=== PATIENT | male | born 1975 | race Two or more races ===

== ENCOUNTER 2019-01-21 05:10 | Emergency (ER) | payer BC ==
[2019-01-21] MEDS ORDERED: ASPIRIN 81 MG TABLET, CHEWABLE PO ONE (05:33)
[2019-01-21 05:58] LABS: ABSOLUTE BASOPHILS # (AUTO) 0.1 10^3/uL (0.0-0.2); ABSOLUTE EOSINOPHILS # (AUTO) 0.2 10^3/uL (0.0-0.6); ABSOLUTE LYMPHOCYTES (AUTO) 2.6 10^3/uL (0.5-4.7); ABSOLUTE MONOCYTES (AUTO) 1.3 10^3/uL (0.1-1.4); ABSOLUTE NEUT (AUTO) 8.6 10^3/uL (1.7-8.2); BASOPHILS % (AUTO) 0.4 % (0-2); EOSINOPHILS % (AUTO) 1.2 % (0-6); HEMATOCRIT 51.7 % (37.9-51.0); HEMOGLOBIN 17.3 g/dL (13.5-17.0); LYMPHOCYTES % (AUTO) 20.2 % (13-45); MEAN CORPUSCULAR HEMOGLOBIN 31.6 pg (27.0-33.4); MEAN CORPUSCULAR HGB CONC 33.5 g/dL (32.0-36.0); MEAN CORPUSCULAR VOLUME 94 fl (80-97); MONOCYTES % (AUTO) 10.6 % (3-13); PLATELET COUNT 313 10^3/uL (150-450); RED BLOOD COUNT 5.49 10^6/uL (4.35-5.55); RED CELL DISTRIBUTION WIDTH 12.7 % (11.5-14.0); SEGMENTED NEUTROPHILS % (AUTO) 67.6 % (42-78); TOTAL CELLS COUNTED % (AUTO) 100 %; WHITE BLOOD COUNT 12.7 10^3/uL (4.0-10.5)
[2019-01-21 06:08] LABS: ALBUMIN 4.6 g/dL (3.5-5.0); ALKALINE PHOSPHATASE 64 U/L (38-126); ANION GAP 10 (5-19); ASPARTATE AMINO TRANSFERASE 32 U/L (17-59); BILIRUBIN,DIRECT 0.2 mg/dL (0.0-0.4); BILIRUBIN,TOTAL 0.9 mg/dL (0.2-1.3); BLOOD UREA NITROGEN 12 mg/dL (7-20); CALCIUM 9.7 mg/dL (8.4-10.2); CARBON DIOXIDE 28 mmol/L (22-30); CHLORIDE 104 mmol/L (98-107); CREATINE KINASE 236 U/L (55-170); GLUCOSE 127 mg/dL (75-110); POTASSIUM 4.3 mmol/L (3.6-5.0); TOTAL PROTEIN 7.9 g/dL (6.3-8.2)
[2019-01-21 06:20] LABS: CREATINE KINASE MB 1.31 ng/mL (<4.55); TROPONIN I < 0.012 ng/mL
[2019-01-21] MEDS ORDERED: KETOROLAC TROMETHAMINE 60 MG/2 ML SDV IM ONE (06:22)
[2019-01-21] MEDS ORDERED: BACLOFEN 20 MG TABLET PO ONE (06:22)
--- NOTE | 2019-01-21 06:27 | ER Document Report ---
ED General - General Chief Complaint: Chest Pain Stated Complaint: CHEST PAIN Time Seen by Provider: 01/21/19 06:15 Primary Care Provider: SUZIE YANEZ NP [Primary Care Provider] - Follow up as needed Mode of Arrival: Ambulatory Information source: Patient Notes: Chief complaint: Right chest wall pain History of complain:( obtained from----patient) 43 years old male nearly 2 days ago while sitting and watching television, had a couple of cough, following that developed sharp pain over the right mid axillary line. Since then the pain is increased in intensity on laying down and twisting the body towards the left side. Sitting up relieves the pain. Denies any difficulty in breathing. Denies any productive cough. Denies any fever chills or other constitutional symptoms. Onset: As about 2 days ago sudden Duration: 2 days Severity: Moderate to severe at times Quality: Sharp Context: As described above Exacerbating factor and relieving factors: As described above REVIEW OF SYSTEMS: CONSTITUTIONAL : Denies fever, chills, or sweats. Denies recent illness. EENT: Denies eye, ear, throat, or mouth pain or symptoms. Denies nasal or sinus congestion or discharge. Denies throat, tongue, or mouth swelling or difficulty swallowing. CARDIOVASCULAR: Denies chest pain. Denies palpitations or racing or irregular heart beat. Denies ankle edema. RESPIRATORY: Denies cough, cold, or chest congestion. Denies shortness of breath, difficulty breathing, or wheezing. GASTROINTESTINAL: Denies distention. Denies nausea, vomiting, or diarrhea. Denies blood in vomitus, stools, or per rectum. Denies black, tarry stools. Denies constipation. GENITOURINARY: Denies difficulty urinating, painful urination, burning, frequency, blood in urine, or discharge. FEMALE GENITOURINARY: Denies vaginal bleeding, heavy or abnormal periods, irregular periods. Denies vaginal discharge or odor. MUSCULOSKELETAL: Denies back or neck pain or stiffness. Denies joint pain or swelling. SKIN: Denies rash, lesions or sores. HEMATOLOGIC : Denies easy bruising or bleeding. LYMPHATIC: Denies swollen, enlarged glands. NEUROLOGICAL: Denies confusion or altered mental status. Denies passing out or loss of consciousness. Denies dizziness or lightheadedness. Denies headache. Denies weakness or paralysis or loss of use of either side. Denies problems with gait or speech. Denies sensory loss, numbness, or tingling. Denies seizures. PSYCHIATRIC: Denies anxiety or stress. Denies depression, suicidal ideation, or homicidal ideation. ALL OTHER SYSTEMS REVIEWED AND NEGATIVE. PHYSICAL EXAMINATION: GENERAL: Well-appearing, well-nourished and in mild to moderate acute distress. Obese HEAD: Atraumatic, normocephalic. EYES: Pupils equal round and reactive to light, extraocular movements intact, conjunctiva are normal. ENT: Nares patent, oropharynx clear without exudates. Moist mucous membranes. NECK: Normal range of motion, supple without lymphadenopathy LUNGS: Breath sounds clear to auscultation bilaterally and equal. No wheezes rales or rhonchi. Chest wall-sharp tenderness over the intercostal muscles noted over the right eighth ninth rib at the mid to anterior axillary line. HEART: Regular rate and rhythm without murmurs ABDOMEN: Soft, nontender, nondistended abdomen. No guarding, no rebound. No masses appreciated. Examination of genitals-deferred Musculoskeletal: Normal range of motion, no pitting or edema. No cyanosis. NEUROLOGICAL: Cranial nerves grossly intact. Normal speech, normal gait. Normal sensory, motor exams PSYCH: Normal mood, normal affect. SKIN: Warm, Dry, normal turgor, no rashes or lesions noted. Dictation was performed using [employer] voice recognition software TRAVEL OUTSIDE OF THE [place] IN LAST 30 DAYS: No - HPI Notes: Dictated - Related Data Allergies/Adverse Reactions: No Known Allergies Allergy (Verified 07/13/12 16:49) Past Medical History - Social History Smoking Status: Current Every Day Smoker Cigarette use (# per day): Yes - 1 p Chew tobacco use (# tins/day): No Smoking Education Provided: No Frequency of alcohol use: Heavy Lives with: Family Family History: Reviewed & Not Pertinent Patient has suicidal ideation: No Patient has homicidal ideation: No - Immunizations Hx Diphtheria, Pertussis, Tetanus Vaccination: Yes Review of Systems - Review of Systems Notes: Dictated Physical Exam - Vital signs Vitals: Temp Pulse Resp BP Pulse Ox 98.4 F 102 H 19 197/110 H 98 01/21/19 05:16 01/21/19 05:16 01/21/19 05:16 01/21/19 05:16 01/21/19 05:16 - Notes Notes: Dictated Course - Vital Signs Vital signs: Temp Pulse Resp BP Pulse Ox 98.4 F 102 H 19 197/110 H 98 01/21/19 05:16 01/21/19 05:16 01/21/19 05:16 01/21/19 05:16 01/21/19 05:16 - Laboratory Result Diagrams: 01/21/19 05:40 01/21/19 05:40 Laboratory results interpreted by me: 01/21/19 01/21/19 05:40 05:40 WBC 12.7 H Hgb 17.3 H Hct 51.7 H Absolute Neuts (auto) 8.6 H Glucose 127 H Creatine Kinase 236 H - Diagnostic Test Radiology reviewed: Reports reviewed - No rib fractures - EKG Interpretation by Me EKG shows normal: Sinus rhythm - Sinus rhythm at rate of 90 bpm, normal axis, no acute ST elevation ST depression T wave inversion noted. Normal EKG Discharge - Discharge Clinical Impression: Right-sided chest wall pain Condition: Fair Disposition: HOME, SELF-CARE Instructions: Chest Wall Pain ([facility]) Prescriptions: Ketorolac Tromethamine [Toradol 10 mg Tablet] 10 mg PO Q8HP PRN #14 tablet PRN Reason: Baclofen [Baclofen 20 Mg Tablet] 20 mg PO TID #30 tablet Referrals: SUZIE YANEZ NP [Primary Care Provider] - Follow up as needed
--- NOTE | 2019-01-21 08:02 | RADIOLOGY REPORT (SQ) ---
EXAM: X-ray RIBS unilateral with chest CLINICAL INDICATION: 43-year-old male with right chest wall pain TECHNICAL DATA: Two x-ray views of the right sided ribs were performed as well as a PA chest on 01/21/2019 at 6:52 AM. COMPARISONS: None FINDINGS: Two views of the right-sided ribs were performed and reveal no evidence of fracture or other acute osseous injury. No focal lytic or sclerotic bone lesions are identified. No definite pneumothorax is seen. No definite soft tissue abnormalities are identified. The lungs are well expanded. There is a linear opacity in the right inferior lateral hemithorax likely due to scarring and/or atelectasis. The lateral costophrenic sulci are clear. The cardiac silhouette is normal in size. The mediastinal contours are normal. There is no evidence of a pneumothorax. IMPRESSION: No evidence of acute rib injury. No evidence of acute intrathoracic disease. There is scarring or atelectasis in the right inferior lateral hemithorax.
[2019-01-21 08:14] VITALS: BP 160/89
--- NOTE | 2019-01-21 22:32 | EKG REPORT ---
SEVERITY:- BORDERLINE ECG - SINUS RHYTHM BORDERLINE INFERIOR Q WAVES : Confirmed by: José Mohr 21-Jan-2019 22:31:29
== END 2019-01-21 08:14 | disposition home or self-care (01) ==
LOC: ER 05:10
DX: R07.89 Other chest pain (principal); R05 Cough; F17.210 Nicotine dependence, cigarettes, uncomplicated
CPT/HCPCS: 93005; 99285; 96374; 36415; 82553; 82550; 85025; 80053; 84484; 71101; 93010; J1885; J3490

== ENCOUNTER → 2019-02-19 | Outpatient (CLI) | payer BC ==
--- NOTE | 2019-02-19 11:48 | RADIOLOGY REPORT (SQ) ---
EXAM DESCRIPTION: U/S ABDOMEN COMPLETE W/O DOP COMPLETED DATE/TIME: 02/19/2019 8:30 am REASON FOR STUDY: RENAL CYST (N28.1) N28.1 CYST OF KIDNEY, ACQUIRED COMPARISON: None. TECHNIQUE: Dynamic and static grayscale images acquired of the abdomen and recorded on PACS. Additio nal selected color Doppler and spectral images recorded. Note: Study does not meet criteria for complete doppler/duplex scan LIMITATIONS: None. FINDINGS: PANCREAS: The head of the pancreas is of normal echotexture. The body and tail are obscu red by overlying bowel gas. LIVER: The liver measures 17.7 cm, mild hepatomegaly. Fatty liver. Areas of focal fatty sparing are identified. LIVER VASCULATURE: Normal directional flow of the main portal vein and hepatic veins. GALLBLADDER: No stones. The gallbladder wall measures 1.9 mm, normal wall thickness. No pericholecys tic fluid. ULTRASOUND-DETECTED RAIN'S SIGN: Negative. INTRAHEPATIC DUCTS AND COMMON DUCT: CBD measures 4.0 mm in diameter, normal. The intrahepatic ducts normal caliber. No filling defects. INFERIOR VENA CAVA: Normal flow. AORTA: No aneurysm. RIGHT KIDNEY: The right kidney measures 12.1 cm in length, normal size. Normal echogenicity. No solid or suspicious masses. No hydronephrosis. No calcifications. LEFT KIDNEY: Left kidney measures 11.2 cm in length, normal size. Normal echogenicity. No solid or suspicious masses. No hydronephrosis. No calcifications. SPLEEN: Spleen measures 12.6 cm in length, normal size. No solid masses. PERITONEAL AND PLEURAL SPACES: No ascites or effusions. OTHER: No other significant finding. IMPRESSION: 1. The pancreas is suboptimally visualized due to overlying bowel gas. 2. Fatty liver. Mild hepatomegaly. TECHNICAL DOCUMENTATION: JOB ID: [id number] [employer]- All Rights Reserved Reading location - IP/workstation name: [email or web address]
--- NOTE | 2019-02-20 08:00 | RADIOLOGY REPORT (SQ) ---
EXAM DESCRIPTION: DUPLEX ART/YANELY FLOW COMPLETE COMPLETED DATE/TIME: 02/19/2019 8:30 am REASON FOR STUDY: RENAL CYST (N28.1),HTN (I10) N28.1 CYST OF KIDNEY, ACQUIRED COMPARISON: None. TECHNIQUE: Realtime and static grayscale images acquired. Selected color Doppler, velocities and spe ctral images recorded. LIMITATIONS: None. FINDINGS: RIGHT KIDNEY: RENAL ARTERY VELOCITIES: 78.7 cm/sec. Segmental artery velocity 59.8 cm/sec. RENAL VEIN: Color doppler flow present, patent. VELOCITY RATIO: 1.68. Normal waveforms. KIDNEY: Normal size. No significant pathology. LEFT KIDNEY: RENAL ARTERY VELOCITIES: 64.6 cm/sec. Segmental artery velocity 42.2 cm/sec. RENAL VEIN: Color doppler flow present, patent. VELOCITY RATIO: 1.38. Normal waveforms. KIDNEY: Normal size. No significant pathology. BLADDER: Normal. OTHER: No other significant finding. IMPRESSION: NO DOPPLER EVIDENCE OF HEMODYNAMICALLY SIGNIFICANT RENAL ARTERY STENOSIS. COMMENT: NORMAL RENAL ARTERY/AORTA VELOCITY RATIO IS LESS THAN OR EQUAL TO 3.5. TECHNICAL DOCUMENTATION: JOB ID: [id number] [employer]- All Rights Reserved Reading location - IP/workstation name: [email or web address]
== END ==
LOC: RAD 07:09
PROVIDERS: ATTEND Physician Assistant
DX: N28.1 Cyst of kidney, acquired (principal); I10 Essential (primary) hypertension
CPT/HCPCS: 76700; 93975